=== PATIENT | female | born 1980 | race Caucasian/White ===

== ENCOUNTER 2018-08-22 07:53 | Inpatient (IN) ==
[2018-08-22] MEDS ORDERED: OXYTOCIN 30 UNITS/500 ML BAG IV PRN (08:47)
[2018-08-22] MEDS ORDERED: LACTATED RINGER'S 1,000 ML IV PRN ×2 (08:47→23:31)
[2018-08-22] MEDS ORDERED: miSOPROStol 25 MCG TAB PV ONE (08:59)
--- NOTE | 2018-08-22 09:03 | Obstetrical Progress Note ---
Date of Service August 22, 2018 Subjective 38 F P1001 at 40 weeks admitted for induction of labor for class 3 obestiy. Cervix 2/50/-3/vertex/soft/posterior/vertex/intact. FHT Cat 1. GBS is negative. Will plan for Cytotec 25 mcg vaginally for ripening. Discussed plan with patient and nurse. Results & Data Vital Signs (Past 12 Hours) Vital Signs Pulse BP 08/22/18 08:00 93 H 133/70
[2018-08-22 09:09] LABS: Hematocrit (blood only) 34.4 % (37-47); Hemoglobin 12.2 g/dL (12.0-16.0); Mean Corpuscular Volume 89.8 fL (80-100); Mean Platelet Volume 10.4 fL (7.4-10.4); Platelet Count 197 K/uL (130-400); RDW Coefficient of Variation 14.3 % (11.5-14.5); RDW Standard Deviation 47.1 fL (36.4-46.3); Red Blood Count 3.83 M/uL (4.2-5.4); White Blood Count 8.96 K/uL (4.8-10.8)
[2018-08-22 09:12] LABS: Mean Corpuscular Hgb Conc 35.5 g/dL (32-36)
--- NOTE | 2018-08-22 09:59 | Obstetrical Progress Note ---
Date of Service August 22, 2018 Physical Exam Constitutional: WD/WN, vitals as above comfortable Genitourinary: OB Exam Abdomen: + heart tones, + vertex and + estimated weight (8.5 lbs.) Manual OB Exam: + cervical dilation 2 cm, + cervical effacement 50% and + station high OB Exam Monitor Tracing: + external FHT monitor used, + external uterine monitor used and + category I Cytotec 25 mcg placed vaginally Results & Data Vital Signs (Past 12 Hours) Vital Signs Temp Pulse Resp BP 08/22/18 09:54 75 126/79 08/22/18 08:40 36.7 C 20 08/22/18 08:00 36.7 C 93 H 20 133/70
[2018-08-22] MEDS: LACTATED RINGER'S 1,000 ML IV SCH ×3 (13:55→23:25)
--- NOTE | 2018-08-22 14:32 | Obstetrical Progress Note ---
Date of Service August 22, 2018 Subjective starting to feel contractions Physical Exam Constitutional: WD/WN, vitals as above comfortable Genitourinary: Manual OB Exam: + cervical dilation 2 cm, + cervical effacement 50% and + station high OB Exam Monitor Tracing: + external FHT monitor used, + external uterine monitor used and + category I Results & Data Vital Signs (Past 12 Hours) Vital Signs Temp Pulse Resp BP 08/22/18 11:55 36.9 C 75 20 132/70 08/22/18 09:54 75 126/79 08/22/18 08:40 36.7 C 20 08/22/18 08:00 36.7 C 93 H 20 133/70
[2018-08-22] MEDS ORDERED: miSOPROStol 25 MCG TAB PV STA (16:39)
--- NOTE | 2018-08-22 16:58 | Obstetrical Progress Note ---
Date of Service August 22, 2018 Physical Exam Constitutional: WD/WN, vitals as above comfortable Genitourinary: Manual OB Exam: + cervical dilation 2 cm, + cervical effacement 50% and + station high OB Exam Monitor Tracing: + external FHT monitor used, + category I and + normal FHT variability Cytotec 25 mcg placed Results & Data Vital Signs (Past 12 Hours) Vital Signs Temp Pulse Resp BP 08/22/18 11:55 36.9 C 75 20 132/70 08/22/18 09:54 75 126/79 08/22/18 08:40 36.7 C 20 08/22/18 08:00 36.7 C 93 H 20 133/70
--- NOTE | 2018-08-22 21:12 | Obstetrical Progress Note ---
Date of Service August 22, 2018 Subjective contractions getting stronger rating pain a 4 Physical Exam Constitutional: WD/WN, vitals as above comfortable Genitourinary: Manual OB Exam: + cervical dilation 3 cm and 4 cm, + cervical effacement 60% and + station high OB Exam Monitor Tracing: + external FHT monitor used, + external uterine monitor used, + category I and + normal FHT variability Results & Data Vital Signs (Past 12 Hours) Vital Signs Temp Pulse Resp BP 08/22/18 19:13 36.7 C 85 18 135/86 08/22/18 18:19 85 128/79 08/22/18 18:18 37.2 C 20 08/22/18 11:55 36.9 C 75 20 132/70 08/22/18 09:54 75 126/79
[2018-08-22] MEDS ORDERED: fentaNYL citrate 100 MCG/2 ML VIAL ONE (22:28)
[2018-08-22] MEDS ORDERED: ePHEDrine sulfate 50 MG/ML AMP ONE (22:28)
[2018-08-22] MEDS ORDERED: BUPIVACAINE 0.25% 30 ML VIAL ONE (22:28)
[2018-08-22] MEDS ORDERED: fentaNYL 2MCG/ML ROPIV 1.25MG/ML 100 ML BAG EPI ONE (22:29)
--- NOTE | 2018-08-22 23:28 | Anesthesiology Consultation ---
Date of Service August 22, 2018 Assessment & Plan (1) Encounter for pre-operative examination: Chart Review Chart Review: Acceptable Risk for Surgery and Patient NOT seen in Pre Admission Testing Consults Requested none History Height/Weight Height: 5 ft 8 in Weight: 130.635 kg Allergies Allergy/AdvReac Type Severity Reaction Status Date / Time Penicillins Allergy Intermediate HIVES Verified 08/22/18 09:37 Medications Home Medications Medication Instructions Recorded Confirmed Last Taken vit-iron fum-folic ac 1 tab PO DAILY 08/22/18 08/22/18 08/22/18 07:00 [ Vitamin] Active Medications Generic Name Dose Route Start Last Admin Trade Name Freq PRN Reason Stop Dose Admin Lactated Ringer's 1,000 mls @ 125 mls/hr 08/22/18 09:00 08/22/18 23:25 Lr IV 08/24/18 08:59 125 mls/hr .Q8H SHANI Administration Past Medical History Medical History H/O wisdom tooth extraction Normal vaginal delivery of first Social History Smoking Status: Former smoker Hx Alcohol Use: No Physical Exam Vital Signs Last Vital Signs Temp 36.7 C 08/22/18 19:13 Pulse 107 H 08/22/18 23:24 Resp 18 08/22/18 19:13 BP 128/75 08/22/18 23:24 Pulse Ox 100 08/22/18 23:22 Testing Laboratory Results 08/22/18 08:58
[2018-08-22] MEDS ORDERED: DiphenhydrAMINE HCL 50 MG/ML VIAL IV PRN (23:31)
[2018-08-22] MEDS ORDERED: NALOXONE HCL 1 MG in SODIUM CHLORIDE 0.9% 1000ML 1,000 ML IV PRN (23:31)
[2018-08-22] MEDS ORDERED: ePHEDrine sulfate 50 MG/ML AMP IV PRN (23:31)
[2018-08-22] MEDS ORDERED: NALBUPHINE HCL INJ 10 MG/ML AMP IV PRN (23:31)
[2018-08-22] MEDS ORDERED: fentaNYL 2MCG/ML ROPIV 1.25MG/ML 100 ML BAG EPI PRN (23:31)
[2018-08-22] MEDS ORDERED: ONDANSETRON INJ 2 MG/ML 2 ML VIAL IV PRN (23:31)
[2018-08-22] MEDS ORDERED: NALOXONE HCL 0.4 MG/1 ML VIAL/CARP IV PRN (23:31)
--- NOTE | 2018-08-23 00:06 | Obstetrical Progress Note ---
Date of Service August 23, 2018 Physical Exam Constitutional: WD/WN, vitals as above comfortable Genitourinary: Manual OB Exam: + cervical dilation 10 cm, + cervical effacement 100%, + station 0 and + amniotic fluid clear OB Exam Monitor Tracing: + external FHT monitor used, + external uterine monitor used and + category I (AROM clear fluid) Results & Data Vital Signs (Past 12 Hours) Vital Signs Temp Pulse Resp BP Pulse Ox 08/23/18 00:02 106 H 99 08/22/18 23:57 102 H 96 08/22/18 23:55 108 H 133/65 08/22/18 23:52 103 H 98 08/22/18 23:50 106 H 131/65 08/22/18 23:47 104 H 142/79 H 100 08/22/18 23:46 102 H 177/101 H 08/22/18 23:42 103 H 99 08/22/18 23:40 110 H 119/84 08/22/18 23:37 128 H 98 08/22/18 23:36 98 H 143/76 H 08/22/18 23:32 96 H 128/74 99 08/22/18 23:27 98 H 100 08/22/18 23:24 107 H 128/75 08/22/18 23:22 97 H 137/74 100 08/22/18 23:20 128/70 08/22/18 23:18 96 H 123/63 08/22/18 23:17 105 H 100 08/22/18 23:16 100 H 121/70 08/22/18 23:14 107 H 123/72 08/22/18 23:12 109 H 131/72 100 08/22/18 23:07 106 H 100 08/22/18 23:02 106 H 100 08/22/18 22:57 85 99 08/22/18 22:52 78 98 08/22/18 22:48 78 134/65 08/22/18 19:13 36.7 C 85 18 135/86 08/22/18 18:19 85 128/79 08/22/18 18:18 37.2 C 20
[2018-08-23] MEDS ORDERED: BENZOCAINE 20% AER SPR 82.5 GM CAN EXT PRN (00:34)
[2018-08-23] MEDS ORDERED: SUPERCREAM 0.870% 15 GM JAR EXT PRN (00:34)
[2018-08-23] MEDS ORDERED: ACETAMINOPHEN 325 MG TAB PO PRN (00:34)
[2018-08-23] MEDS ORDERED: OXYTOCIN 30 UNITS/500 ML BAG IV PRN (00:34)
[2018-08-23] MEDS ORDERED: BISACODYL 10 MG SUPP PR PRN (00:34)
[2018-08-23] MEDS ORDERED: HYDROCORTISONE ACETATE 25 MG SUPP PR PRN (00:34)
[2018-08-23] MEDS ORDERED: DIPHTHERIA/TETANUS/PERTUSSIS 0.5 ML SYR/VIAL IM ONE (00:34)
--- NOTE | 2018-08-23 00:42 | Procedure Note ---
Vaginal Delivery Summary Date of Service August 23, 2018 Vaginal Delivery Summary Delivery Note live female over intact perineum ADA with nuchal cord x1 reduced at perineum with delayed cord clamping and Apgars 8/9 weight pending. Cord blood obtained and placenta delivered spontaneously and intact. First degree tear repaired wit 3/0 Vicryl suture. EBL 250 ml. Final sponge needle and instrument count are correct. Mom and baby stable.
--- NOTE | 2018-08-23 02:52 | Anesthesia Procedure Note ---
Date of Service August 23, 2018 Anesthesia Post Epidural Note Vital Signs Vital Signs: Temp Pulse Resp BP Pulse Ox 36.8 C 90 18 124/66 97 08/22/18 22:48 08/23/18 02:50 08/23/18 02:25 08/23/18 02:50 08/23/18 01:07 Pain Intensity Episiotomy/Laceration: Pain Intensity: 0 Abdomen: Pain Intensity: 0 Notes Mental Status: alert / awake / arousable Patient Amnestic to Procedure: Yes Nausea / Vomiting: adequately controlled Pain: adequately controlled Airway Patency, RR, SpO2: stable & adequate BP & HR: stable & adequate Hydration State: stable & adequate Neuraxial Anesthesia: was administered and sensory block resolved Anesthetic Complications: no major complications apparent and Pt Satisfied with anesthetic care Epidural: Removed without complications and With tip intact
[2018-08-23] MEDS: DOCUSATE SODIUM 100 MG CAP PO SCH ×2 (08:53→20:18)
[2018-08-23] MEDS: PRENATAL VITAMIN 1 TAB PO SCH (08:53)
[2018-08-23] MEDS ORDERED: NON-FORMULARY MEDICATION (Prenatal Vit-Iron Fum-Folic Ac [Prenatal Vitamin] 1 TAB) PO SCH (09:00)
[2018-08-23] MEDS: IBUPROFEN 600 MG TAB PO PRN ×3 (09:04→20:18)
[2018-08-24] MEDS: IBUPROFEN 600 MG TAB PO PRN ×2 (05:14→11:51)
[2018-08-24 08:19] LABS: Hematocrit (blood only) 29.8 % (37-47); Hemoglobin 10.4 g/dL (12.0-16.0); Mean Corpuscular Hgb Conc 34.9 g/dL (32-36); Mean Corpuscular Volume 90.6 fL (80-100); Mean Platelet Volume 10.2 fL (7.4-10.4); Platelet Count 193 K/uL (130-400); RDW Coefficient of Variation 14.6 % (11.5-14.5); RDW Standard Deviation 47.7 fL (36.4-46.3); Red Blood Count 3.29 M/uL (4.2-5.4); White Blood Count 9.58 K/uL (4.8-10.8)
--- NOTE | 2018-08-24 08:38 | Obstetrical Progress Note ---
Date of Service August 24, 2018 Subjective Patient is seen and examined. She feels well, no complaints. Likes to be discharged today. Ambulating without dizziness Voiding without difficulty Tolerating regular diet with out N&V Bleeding is minimal No fever/ chills/ CP/ SOB/ N&V/ Leg pain Breast feeding without problems Discussed contraception, likes to wait until 6 weeks pp visit Vital Signs Temp Pulse Resp BP Pulse Ox 08/23/18 23:30 36.7 C 82 20 100/64 08/23/18 15:40 37.0 C 79 18 112/61 99 08/23/18 12:16 36.8 C 66 20 103/64 08/24/18 Range/Units 07:38 WBC 9.58 (4.8-10.8) K/uL RBC 3.29 L (4.2-5.4) M/uL Hgb 10.4 L (12.0-16.0) g/dL Hct 29.8 L (37-47) % MCV 90.6 (80-100) fL MCH 31.6 (25-34) pg MCHC 34.9 (32-36) g/dL RDW Std Deviation 47.7 H (36.4-46.3) fL RDW Coeff of Erik 14.6 H (11.5-14.5) % Plt Count 193 (130-400) K/uL MPV 10.2 (7.4-10.4) fL PE: General: Alert, orientedx3, NAD Abd: soft, NT, fundus firm, below Umbilicus Perineum intact, Lochia rubra minimal Ext; NT, no edema AP: 38 yo s/p , ppd# 1 VSS Afebrile doing well Continue routine care All questions were answered Discussed when to call D/C home , f/u in office Results & Data Vital Signs (Past 12 Hours) Vital Signs Temp Pulse Resp BP 08/23/18 23:30 36.7 C 82 20 100/64
[2018-08-24] MEDS: DOCUSATE SODIUM 100 MG CAP PO SCH (09:07)
[2018-08-24] MEDS: PRENATAL VITAMIN 1 TAB PO SCH (09:07)
[2018-08-24] MEDS ORDERED: BISACODYL 5 MG TABEC PO SCH (20:00)
== END 2018-08-24 17:55 | disposition home or self-care (01) | DRG 806 ==
LOC: 4S1 07:53 → 4S2 08-23 03:05